=== PATIENT | female | born 1970 | race Caucasian/White ===

== ENCOUNTER 2017-01-02 05:55 | Emergency (ER) | payer BC ==
[2017-01-02] MEDS ORDERED: NS 0.9% 1000 ML* 1,000 ML IV ONE (07:10)
[2017-01-02] MEDS ORDERED: Ondansetron INJ* 2 MG/ML VIAL IV ONE (07:11)
[2017-01-02] MEDS ORDERED: Morphine INJ* 4 MG/ML 1 ML SYRINGE IV ONE (07:11)
[2017-01-02] MEDS ORDERED: Ketorolac INJ* 30 MG/ML 1 ML VIAL IV PUSH ONE (07:11)
--- NOTE | 2017-01-02 07:26 | ED ---
Brayden Torres Alfonso, scribed for Khushbu Arias MD on 01/02/17 at 0715 . Abdominal Pain/Female - HPI Summary HPI Summary: This patient is a 46 year old F [place] [facility] [place] by with a chief complaint of constant left flank pain for two days. Pain started in left back. Now also pain in LLQ. The CC is described as a pressure. The patient rates the pain 8/10 in severity. Symptoms aggravated by some movement and alleviated by position and Vicodin. 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 Patient reports nausea, and chills. Patient denies diarrhea, urinary frequency, vaginal discharge, and leg pain. PMHx of left breast cancer (April 2013) with sentinel node, kidney stone in 2009 similar, chronic low back pain, 3 back surgeries, and fibroid cyst surgery. Pt with infrequent menses - on Tamoxifen. Patients medication reviewed this visit. 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 Associated Signs and Symptoms: Positive: Nausea, Other: - Positive chills; negative diarrhea, urinary frequency, vaginal discharge, and leg pain Allergies/Adverse Reactions: Allergies Allergy/AdvReac Type Severity Reaction Status Date / Time Sulfa Antibiotics Allergy Mild Vomiting Verified 01/02/17 06:13 BANDAIDS Allergy Rash Uncoded 01/02/17 06:13 ENVIRONMENTAL/SEASONAL Allergy RUNNY Uncoded 01/02/17 06:13 HAYFEVER NOSE, ITCHY WATERY EYES, ITCHY EARS Home Medications: Home Medications Diclofenac PRN 01/02/17 [History] PMH/Surg Hx/FS Hx/Imm Hx Previously Healthy: Yes Endocrine/Hematology History: Denies: Hx Anticoagulant Therapy, Hx Diabetes, Hx Systemic Lupus Erythematosus Cardiovascular History: Denies: Hx Congestive Heart Failure, Hx Hypertension, Hx Pacemaker/ICD, Other Cardiovascular Problems/Disorders Respiratory History: Denies: Other Respiratory Problems/Disorders History: Reports: Hx Kidney Stones - 2009, PASSED Denies: Hx Renal Disease Musculoskeletal History: Denies: Hx Rheumatoid Arthritis, Hx Osteoporosis Sensory History: Reports: Hx Contacts or Glasses - READING GLASSES Denies: Hx Hearing Aid Opthamlomology History: Reports: Hx Contacts or Glasses - READING GLASSES Neurological History: Reports: Hx Migraine - AROUND MENSTRAL CYCLE Psychiatric History: Denies: Hx Panic Disorder - Cancer History Cancer Type, Location and Year: BREAST LEFT Hx Chemotherapy: Yes Hx Radiation Therapy: No - Surgical History Surgery Procedure, Year, and Place: BACK SURGERIES X3, 1985, 2002, 2004, [place] , [place]. 2 JAW SURGERIES FROM TMJ, 1991, 1992, [place]. LAPAROSCOPY ENDOMETRIOSIS, FIBROID CYSTS, 2000, [facility] -SAME PROCEDURE 06/2015. LEFT SIDE LUMPECTOMY - APR 2013. LYMPH NODE MAY 2013. WISDOM TEETH, 1986 Hx Anesthesia Reactions: Yes - N/V, PARTIAL LUNG COLLAPSE, Infectious Disease History: No Infectious Disease History: Denies: Traveled Outside the [place] in Last 30 Days - Family History Known Family History: Positive: Other - Kidney stones. - Social History Lives: With Family Alcohol Use: Rare Substance Use Type: Reports: None Substance Use Comment - Amount & Last Used: VICODIN Smoking Status (MU): Former Smoker Have You Smoked in the Last Year: No Review of Systems Positive: Chills Eyes: Negative ENT: Negative Cardiovascular: Negative Positive: Abdominal Pain - Left flank, Nausea. Negative: Diarrhea Genitourinary: Negative Positive: other - Neg vaginal discharge.. Negative: frequency Musculoskeletal: Negative Positive: Other - chronic leg paresthesia - no change Skin: Negative Neurological: Negative Psychological: Normal All Other Systems Reviewed And Are Negative: Yes Physical Exam Triage Information Reviewed: Yes Vital Signs On Initial Exam: Initial Vitals Temp Pulse Resp BP Pulse Ox 97.8 F 100 12 127/51 100 01/02/17 06:07 01/02/17 06:07 01/02/17 06:07 01/02/17 06:07 01/02/17 06:07 Vital Signs Reviewed: Yes Appearance: Positive: Well-Appearing, No Pain Distress, Well-Nourished Skin: Positive: Warm, Skin Color Reflects Adequate Perfusion, Dry Eyes: Positive: Normal, EOMI, ARVIN ENT: Positive: Normal ENT inspection, Hearing grossly normal, Pharynx normal Neck: Positive: Supple, Nontender Respiratory/Lung Sounds: Positive: Clear to Auscultation, Breath Sounds Present Cardiovascular: Positive: Normal, RRR. Negative: Murmur Abdomen Description: Positive: Nontender, No Organomegaly, Soft Bowel Sounds: Positive: Present Musculoskeletal: Positive: Other - No pain spinous process c/t/l/s + TTP left paraspinal discomfort with direct palpation. Pain increases with sitting up, movement Neurological: Positive: Normal, Sensory/Motor Intact, Alert, Oriented to Person Place, Time Psychiatric: Positive: Normal AVPU Assessment: Alert - [place] Coma Scale Best Eye Response: 4 - Spontaneous Best Motor Response: 6 - Obeys Commands Best Verbal Response: 5 - Oriented Diagnostics - Vital Signs Vital Signs Temp Pulse Resp BP Pulse Ox 01/02/17 06:07 97.8 F 100 12 127/51 100 - Laboratory Result Diagrams: 01/02/17 07:30 01/02/17 07:30 Lab Statement: Any lab studies that have been ordered have been reviewed, and results considered in the medical decision making process. - CT A/P CT Interpretation Completed By: Radiologist - Imaging radiation control worker : 6 mm stone appearing in proximal left ureter since 05/20/10 and causing minimal hydronephrosis. 5.3 cm cyst appearing in left ovary/ Trace physiologic free fluid right posterior cul-de-sac. Unremarkable pancreas and gallbladder. No bowel obstruction, colitis, or free air. Appendix not seen with certainty. No pericecal inflammation to suggest acute appendicitis. Steatosis liver. Surgical changes lumbosacral spine. Dr. Bray : 1. Moderate LEFT hydronephrosis is traced to a 7 mm stone at the proximal LEFT ureter. 2. Sharply circumscribed 5.3 cm maximum dimension near water density LEFT ovarian cyst likely a follicular or hemorrhagic cyst. Follow-up pelvic ultrasound suggested for further assessment. Results discussed with Dr. Arias 01/02/2017 8:29 AM EDT - Additional Comments Diagnostic Additional Comments: Transvaginal US reveals, per radiologist, FIBROID UTERUS. 5 CENTIMETERS LEFT OVARIAN CYST. SUGGEST FOLLOW-UP IN 3 MONTHS. NONVISUALIZATION RIGHT OVARY. Re-Evaluation - Re-Evaluation First Eval Re-Evaluation Time: 08:10 Change: Improved Comment: Patient now states she is pain free. CT A/P results reviewed. She agrees to do an US for further eval of ovarian cyst. Pt requesting po Second Eval Re-Evaluation Time: 08:48 Comment: Pt at ultrasound. Reviewed CT interprestation Dr. Bray with Third Eval Re-Evaluation Time: 10:15 Change: Improved Comment: Patient continues to be pain free. She has seen Dr. Deleon (urologist) before and will schedule a follow up at their office. Sarmad give Rx percocet, flomax Abdominal Pain Fem Course/Dx - Course Course Of Treatment: Pt presents wiht left sided back pain since Sunday now with radiation to left LQ. Pain worse with movement and direct palpation. Differential includes renal colic, ovarian cyst, musculoskeletal pain, UTI/ pyelo. ivf. analgesia. labs. urine. CT. reassess - Diagnoses Provider Diagnoses: Renal colic on left side, Ovarian cyst - Provider Notifications Discussed Care Of Patient With: Cristian Bray Time Discussed With Above Provider: 08:29 Instructed by Provider To: Other - Consulted Dr. Bray (radiologist) to review of CT - renal stone has migrated from kidney - was in kidney in 2014. Consulted [address]. Deleon (urologist) at 1029 who requested a KUB. Discharge - Discharge Plan Condition: Stable Disposition: HOME Prescriptions: Tamsulosin CAP* [Flomax CAP*] 0.4 mg PO BEDTIME #7 cap oxyCODONE/Acetamin 5/325 MG* [Percocet 5/325 TAB*] 1 - 2 tab PO Q6H PRN #20 tab MDD 8 PRN Reason: Pain Patient Education Materials: Renal Colic (ED), Ovarian Cyst (ED) Referrals: Amber Faulkner NP [Primary Care Provider] - 3 Days Parker Deleon MD [Medical Doctor] - 1 Day (tomorrow, 01/03/17, at 2pm ) Additional Instructions: - stay well hydrated. Drink plenty of non-alcoholic, non-caffinated beverages - Okay to alternate ibuprofen (advil, motrin) 600mg and tylenol product (Vicodin , Percocet) every 3 hours for pain. Take with food. Do NOT drive, operate machinery or drink alcohol while taking these medications - Take flomax at bedtime as instructed - Dr. Deleon would like to see you in follow-up. As we discussed, you will likely require intervention given the size of your stone. You have an appointment scheduled for tomorrow, 01/03/17, at 2pm -If you develop fever, chills, nausea, or uncontrolled pain, contact Dr. Deleon or return to the emergency department The documentation as recorded by the Brayden collins Alfonso accurately reflects the service I personally performed and the decisions made by me, Khushbu Arias MD.
[2017-01-02 07:46] LABS: Hematocrit 36 % (35-47); Hemoglobin 12.1 g/dl (12.0-16.0); Mean Corpuscular HGB Conc 33 g/dl (31-36); Mean Corpuscular Hemoglobin 28 pg (27-31); Mean Corpuscular Volume 85 fL (80-97); Mean Platelet Volume 9 um3 (7.4-10.4); Red Blood Count 4.31 10^6/ul (4.0-5.4); Red Cell Distribution Width 13 % (10.5-15); White Blood Count 12.4 10^3/ul (3.5-10.8)
[2017-01-02 07:53] LABS: Urine Bacteria 1+ (Absent); Urine Bilirubin Negative (Negative); Urine Glucose Negative (Negative); Urine Nitrite Negative (Negative)
[2017-01-02 07:57] LABS: Albumin 4.4 g/dL (3.2-5.2); BUN/Creatinine Ratio 8.1 (8-20); C Reactive Protein 33.17 mg/L (< 5.00); Calcium 9.6 mg/dL (8.6-10.3); EGFR African American 54.1 (>60); Globulin 3.2 g/dL (2-4); Potassium 3.6 mmol/L (3.5-5.0); Total Bilirubin 0.7 mg/dL (0.2-1.0); Total Protein 7.6 g/dL (6.4-8.9)
--- NOTE | 2017-01-02 08:38 | RAD ---
INDICATION: LEFT flank pain. Nausea. History of kidney stones. History of breast carcinoma and endometriosis. COMPARISON: September 29, 2016 bone scan and May 26, 2014 PET scan. TECHNIQUE: Multidetector CT images were obtained from the lung bases to the ischial tuberosities. Evaluation of the viscera is limited without IV contrast. Multiplanar reformation. REPORT: Unremarkable visualized inferior thorax. Unremarkable unenhanced liver, gallbladder, pancreas, spleen. Negative for CT abnormality of the upper GI, small bowel, medially extending appendix, or colon. Negative for ascites, free air, hernias. Normal adrenal glands. Moderate LEFT hydronephrosis is traced to a 7 mm stone at the proximal LEFT ureter. Mild periureteral and perinephric inflammatory stranding. No additional urolithiasis evident. No conspicuous focal renal lesions. Unremarkable partially distended urinary bladder. Unremarkable uterus and RIGHT adnexal region. Sharply circumscribed 5.3 cm maximum dimension near water density LEFT ovarian cyst likely a follicular or hemorrhagic cyst. Negative for lymphadenopathy. Mild calcific plaque of normal diameter abdominal aorta. Physiologic distention of the IVC. Postsurgical change of L5-S1 decompressive laminectomy and fusion. Negative for suspicious focal osseous lesions. IMPRESSION: 1. Moderate LEFT hydronephrosis is traced to a 7 mm stone at the proximal LEFT ureter. 2. Sharply circumscribed 5.3 cm maximum dimension near water density LEFT ovarian cyst likely a follicular or hemorrhagic cyst. Follow-up pelvic ultrasound suggested for further assessment. Results discussed with Dr. Arias 01/02/2017 8:29 AM EDT
--- NOTE | 2017-01-02 10:13 | RAD ---
INDICATION: Fibroid uterus. Ovarian cyst COMPARISON: CT January 02, 2017 TECHNIQUE: Longitudinal and transverse transvaginal and Limited transabdominal scans of the pelvis were obtained. FINDINGS: Uterus: The uterus appears mildly bulky. There are multiple fibroids. In the right fundus is a 2.4 x 2.4 x 2.5 cm fibroid. These measurements are slightly increased. In the right body is a second fibroid measuring 2.4 x 2.4 x 2.6 cm, increased in size. A third fibroid is also present in the right body and measures 2.2 x 2.0 x 2.0 cm, unchanged. A fourth fibroid is in the left fundus and measures 2.5 x 2.2 x 2.2 cm. These measurements are slightly larger.. The uterus measures 9.0 x 4.4 x 6.5 cm. Endometrial thickness: The endometrial thickness is measured at 1.0 cm. . Free fluid: There is no significant free fluid . Ovaries: The right ovary is not identified as a discrete structure. The left ovary measures 4.9 x 4.1 x 4.9 cm. There is a left ovarian cyst measuring 4.2 x 3.9 x 5.0 cm. There is flow on Doppler interrogation. Other: None IMPRESSION: FIBROID UTERUS. 5 CENTIMETERS LEFT OVARIAN CYST. SUGGEST FOLLOW-UP IN 3 MONTHS. NONVISUALIZATION RIGHT OVARY.
--- NOTE | 2017-01-02 11:14 | RAD ---
INDICATION: Proximal left ureteral calculus COMPARISON: CT December 31, 2016 TECHNIQUE: A single view of the abdomen is submitted. FINDINGS: Bones: There are no acute bony findings. Soft tissues: The soft tissues appear normal. The psoas margins are sharp. Bowel gas pattern: Normal Calcifications: The known proximal left ureteral calculus is not identified with certainty likely secondary to overlying bowel. Other: None IMPRESSION: THE LEFT RENAL CALCULUS IS NOT DEFINITIVELY IDENTIFIED ON THE PLAIN RADIOGRAPH
[2017-01-02 11:55] VITALS: BP 118/85
--- NOTE | 2017-01-04 08:41 | ED ---
Brayden Torres Alfonso, scribed for Khushbu Arias MD on 01/02/17 at 1133 . Progress - Progress Note Progress Note: An abdomen X-Ray KUB reveals, per radiologist, THE LEFT RENAL CALCULUS IS NOT DEFINITIVELY IDENTIFIED ON THE PLAIN RADIOGRAPH. Re-Evaluation - Re-Evaluation First Eval Re-Evaluation Time: 08:10 Change: Improved Comment: Patient now states she is pain free. CT A/P results reviewed. She agrees to do an US for further eval of ovarian cyst. Pt requesting po Second Eval Re-Evaluation Time: 08:48 Comment: Pt at ultrasound. Reviewed CT interprestation Dr. Bray with Third Eval Re-Evaluation Time: 10:15 Change: Improved Comment: Patient continues to be pain free. She has seen Dr. Deleon (urologist) before and will schedule a follow up at their office. Sarmad give Rx percocet, flomax Course/Dx - Course Course Of Treatment: Pt presents wiht left sided back pain since Sunday now with radiation to left LQ. Pain worse with movement and direct palpation. Differential includes renal colic, ovarian cyst, musculoskeletal pain, UTI/ pyelo. ivf. analgesia. labs. urine. CT. reassess - Diagnoses Provider Diagnoses: Renal colic on left side, Ovarian cyst - Provider Notifications Time Discussed With Above Provider: 08:29 Instructed by Provider To: Other - Consulted Dr. Bray (radiologist) to review of CT - renal stone has migrated from kidney - was in kidney in 2014. Consult[address] Deleon (urologist) at 1029 who requested a KUB. The documentation as recorded by the Brayden collins Alfonso accurately reflects the service I personally performed and the decisions made by me, Khushbu Arias MD.
== END 2017-01-02 11:55 | disposition home or self-care (01) ==
LOC: ED 05:55
DX: N23 Unspecified renal colic (principal); D25.9 Leiomyoma of uterus, unspecified; N83.202 Unspecified ovarian cyst, left side
CPT/HCPCS: 36415; 74000; 74176; 76830; 80053; 81003; 81015; 83605; 83690; 85025; 86140; 87086; 96374; 96375; 99283; J1885; J2270; J2405

== ENCOUNTER 2017-01-03 14:45 | Day surgery (SDC) | payer BC ==
[2017-01-03] MEDS ORDERED: Ondansetron INJ* 2 MG/ML VIAL IV PRN ×2 (15:01→16:37)
[2017-01-03] MEDS ORDERED: HYDROmorphone* 1 MG/ML 1 ML SYR IV PRN ×2 (15:01→16:37)
[2017-01-03] MEDS ORDERED: Buffered Lidocaine 0.9% SYRIN* 5 ML/SYR SYRINGE ONE (15:03)
[2017-01-03] MEDS ORDERED: Ondansetron INJ* 2 MG/ML VIAL ONE (15:03)
[2017-01-03] MEDS ORDERED: cefTRIAXone(*) 2 GM ADDV.VIAL IVPB ONE (15:03)
[2017-01-03] MEDS ORDERED: Buffered Lidocaine 0.9% SYRIN* 5 ML/SYR SYRINGE INTRADERM ONE (15:29)
--- NOTE | 2017-01-03 15:45 | HP ---
CC: Amber Faulkner NP * DATE OF ADMISSION: 01/03/2017. AGE: 46-year-old female. ADMITTING DIAGNOSES: 1. Left flank pain. 2. Calculus left proximal ureter. 3. Left hydronephrosis. PLANNED PROCEDURE: Left stent insertion, possible ureteroscopy (to be followed in the near future by lithotripsy). SURGEON: Dr. Parker Deleon. HISTORY OF PRESENT ILLNESS: Guerita Minor is a 46-year-old lady with a history of renal calculi. I had originally evaluated her in 2010 and since then she has not had any episodes of flank pain until recently. She started having left flank pain last week which subsequently got more severe, requiring a trip to the emergency room. This revealed a 7 mm calculus in the proximal left ureter with left hydronephrosis and hydroureter. She is being brought in for urgent left stent insertion because of increasing severity of pain and will probably require lithotripsy in the near future because of the proximal location of the calculus. PAST MEDICAL HISTORY: Significant for: 1. Renal calculi. 2. Left breast cancer diagnosed in 2012. PAST SURGICAL HISTORY: 1. Significant for left breast lumpectomy, followed by sentinel lymph note dissection. 2. Multiple back surgeries (three total). 3. Surgery for endometriosis. MEDICATIONS ON ADMISSION: Vicodin and Percocet on a prn basis, Flomax 0.4 mg once a day, Tamoxifen daily. ALLERGIES: SULFA. FAMILY HISTORY: Her mother has a history of kidney stones. SMOKING HISTORY: Nonsmoker. REVIEW OF SYSTEMS: She is otherwise in excellent health. She denies any chest pain or shortness of breath. There is no history of diabetes mellitus or any other major systemic illness. PHYSICAL EXAMINATION GENERAL: Middle-aged lady who appears to be in fairly severe discomfort. VITAL SIGNS: Blood pressure 138/86, pulse 92 per minute, temperature 96.2, oxygen saturation 96 percent on room air. CARDIOVASCULAR: Regular rate and rhythm, S1, S2. LUNGS: Clear bilaterally. ABDOMEN: Soft with left flank tenderness. IMPRESSION: Qiqrg-vpjvs-yigz-old lady with an obstructing calculus in the left proximal ureter causing severe pain in spite of oral pain medication. PLAN: Left stent insertion, possible ureteroscopy (to be followed in the near future by lithotripsy). [id number]/[facility] #: [id number] [place]
[2017-01-03] MEDS ORDERED: HYDROmorphone* 1 MG/ML 1 ML SYR ONE (16:18)
[2017-01-03] MEDS ORDERED: Iohexol 180 (CONTRAST) 10 ML SDV IV ONE (16:31)
[2017-01-03] MEDS ORDERED: fentaNYL* 50 MCG/ML 2 ML VIAL (100 MCG VIAL) IV PRN (16:37)
[2017-01-03] MEDS ORDERED: HYDROcodone/ACETAMIN 5-325 MG* 1 TAB PO PRN (16:37)
[2017-01-03] MEDS ORDERED: diPHENhydraMINE IV* 50 MG/ML 1 ml VIAL (BENADRYL) IV PRN (16:37)
[2017-01-03] MEDS ORDERED: DiMENhydriNATE IV* 50 MG/ML VIAL IV PUSH PRN (16:37)
[2017-01-03] MEDS ORDERED: fentaNYL* 50 MCG/ML 2 ML VIAL (100 MCG VIAL) ONE (16:41)
[2017-01-03] MEDS ORDERED: Midazolam* 1 MG/ML 2 ML VIAL (2 MG) ONE (16:41)
[2017-01-03] MEDS ORDERED: Lidocaine 2% PF * 5 ML VIAL ONE (17:26)
[2017-01-03] MEDS ORDERED: Propofol* 10 MG/ML 20 ML BTL IV PUSH ONE (17:26)
[2017-01-03] MEDS ORDERED: Famotidine IV* 10 MG/ML 2 ML (20 mg) ONE (17:26)
[2017-01-03] MEDS ORDERED: Dexamethasone IV* 4 MG/ML 1 ML (4 MG) ONE (17:26)
[2017-01-03] MEDS ORDERED: oxyCODONE/Acetamin 5/325 MG* TAB ONE (18:19)
--- NOTE | 2017-01-03 18:39 | RAD ---
INDICATION: Retrograde pyelogram stent placement COMPARISONS: CT dated January 02, 2017 TECHNIQUE: Fluoroscopy was provided for a retrograde pyelogram and stent placement. Total fluoroscopy time is: 17 seconds FINDINGS: Spot images demonstrate contrast and a stent within the renal collecting system. IMPRESSION: FLUOROSCOPY WAS PROVIDED FOR A RETROGRADE PYELOGRAM AND STENT PLACEMENT CPT II Codes: 6045F
[2017-01-03 18:43] VITALS: BP 111/58
[2017-01-03] MEDS ORDERED: CMCS:Solifenacin(NF) 5 MG TAB PO ONE (19:00)
--- NOTE | 2017-01-03 20:51 | RAD ---
HISTORY: Postop COMPARISONS: Pyelogram dated January 03, 2017 VIEWS: Frontal views of the abdomen. FINDINGS: BOWEL: There is a nonspecific bowel gas pattern, with nondilated small bowel gas noted. CALCULI: A left ureteral stent is noted. There is a 0.5 cm calculus overlying the proximal portion of the stent, likely within the proximal ureter versus left renal pelvis. BONES AND SOFT TISSUES: There is post surgical change to the spine. OTHER FINDINGS: The lung bases are clear. There are radiopaque foreign bodies noted overlying the right hemiabdomen. IMPRESSION: LEFT NEPHROLITHIASIS WITH A LEFT URETERAL STENT
--- NOTE | 2017-01-04 10:10 | OP ---
CC: Amber Faulkner NP; Dr. Parker Deleon OPERATIVE REPORT: DATE OF OPERATION: 01/03/17 DATE OF : [birth year] AGE: 46 years, female. SURGEON: Parker Deleon MD. ANESTHESIOLOGIST: Dr. Patel. ANESTHESIA: General. PRE-OP DIAGNOSES: 1 . Left hydronephrosis. 2. Calculus, proximal left ureter. POST-OP DIAGNOSES: 1 . Left hydronephrosis. 2. Calculus, proximal left ureter. OPERATIVE PROCEDURE: Cystoscopy, left retrograde pyelogram, left ureteral calculus manipulation, an d left stent insertion. COMPLICATIONS: None. POSTOPERATIVE CONDITION: Stable. STENT USED: 6-[place] stent, left ureter. INDICATIONS: Guerita Minor is a 46-year-old lady who was evaluated for severe left flank pain se condary to an obstructing calculus in the left proximal ureter. She is being brought in for urgent l eft stent insertion, to be followed in the near future by lithotripsy. DESCRIPTION OF PROCEDURE: After induction of general anesthesia, patient was placed in dorsal litho stacy position. Sequential compression devices were in place and functioning. Initial cystoscopy re vealed a normally located right and left ureteral orifices. The bladder was examined and appeared u nremarkable. A guidewire was introduced into the left ureter. Retrograde pyelogram revealed left h ydronephrosis. An open-ended catheter was advanced to the level of the proximal ureter, about 5 cm from the ureteropelvic junction. The calculus was noted and was carefully manipulated proximally. A 6-[place] stent was introduced and positioned under fluoroscopy, with good proximal and distal posi tioning obtained. The initial stent deployment showed good positioning. However, the open-ended ca theter, which was used as a pusher, was tunnelled into the distal end of the stent. This required m e to remove the stent and reposition it again over a guidewire and, once again, good proximal and di stal positioning was obtained. The contrast drained nicely out of the kidney. The bladder was empt ied. The patient tolerated the procedure satisfactorily and was transferred back to recovery area i n stable condition. [id number]/[facility] #: [id number]
== END 2017-01-03 18:52 | disposition home or self-care (01) ==
LOC: OR 14:45
PROVIDERS: ATTEND Urology
DX: N13.2 Hydronephrosis with renal and ureteral calculous obstruction (principal); Z87.891 Personal history of nicotine dependence; Z85.3 Personal history of malignant neoplasm of breast
CPT/HCPCS: 74000; 74420; 81025; A9270-GY; C1876; J0696; J1100; J1170; J1580; J2250; J2405; J2704; J3010

== ENCOUNTER 2017-01-22 09:14 | Day surgery (SDC) | payer BC ==
[~2017-01-22 09:14] MED LIST: Buffered Lidocaine 0.9% SYRIN* 5 ML/SYR SYRINGE INTRADERM ONE
[2017-01-22] MEDS ORDERED: Buffered Lidocaine 0.9% SYRIN* 5 ML/SYR SYRINGE ONE (09:16)
[2017-01-22] MEDS ORDERED: cefTRIAXone(*) 2 GM ADDV.VIAL IVPB ONE (09:16)
--- NOTE | 2017-01-22 10:04 | RAD ---
HISTORY: Shock wave lithotripsy COMPARISONS: January 03, 2017 VIEWS: Frontal views of the abdomen. FINDINGS: BOWEL: There is a nonspecific bowel gas pattern, with nondilated small bowel gas noted. CALCULI: A left ureteral stent is noted. There is a 0.5 cm calculus along the proximal left ureter. BONES AND SOFT TISSUES: There is post surgical change to the spine OTHER FINDINGS: The lung bases are clear. There is no subphrenic gas. IMPRESSION: LEFT NEPHROLITHIASIS WITH A LEFT URETERAL STENT
[2017-01-22] MEDS ORDERED: fentaNYL* 50 MCG/ML 2 ML VIAL (100 MCG VIAL) ONE (10:26)
[2017-01-22] MEDS ORDERED: Midazolam* 1 MG/ML 2 ML VIAL (2 MG) ONE (10:26)
[2017-01-22] MEDS ORDERED: HYDROmorphone* 1 MG/ML 1 ML CARPUJECT IV PRN (11:34)
[2017-01-22] MEDS ORDERED: fentaNYL* 50 MCG/ML 2 ML VIAL (100 MCG VIAL) IV PRN (11:34)
[2017-01-22] MEDS ORDERED: Acetaminophen TAB* 325 MG PO PRN (11:34)
[2017-01-22] MEDS ORDERED: Ondansetron INJ* 2 MG/ML VIAL IV PRN (11:34)
[2017-01-22] MEDS ORDERED: DiMENhydriNATE IV* 50 MG/ML VIAL IV PUSH PRN (11:34)
[2017-01-22] MEDS ORDERED: PROCHLORPERAZINE INJ 5 MG/ML 2 ML VIAL IV PRN (11:34)
[2017-01-22] MEDS ORDERED: Dexamethasone IV* 4 MG/ML 1 ML (4 MG) ONE (11:53)
[2017-01-22] MEDS ORDERED: Propofol* 10 MG/ML 20 ML BTL IV PUSH ONE (11:53)
[2017-01-22] MEDS ORDERED: Famotidine IV* 10 MG/ML 2 ML (20 mg) ONE (11:53)
[2017-01-22] MEDS ORDERED: Lidocaine 2% PF * 5 ML VIAL ONE (11:53)
[2017-01-22 13:20] VITALS: BP 118/71
--- NOTE | 2017-01-22 22:50 | OP ---
CC: Amber Faulkner NP * DATE OF OPERATION: 01/22/17 - SDS DATE OF : [birth year] - AGE: 46 years, female. SURGEON: Dr. Deleon. ANESTHESIOLOGIST: Dr. Patel. ANESTHESIA: General. PRE-OP DIAGNOSES: Calculus, left proximal ureter. POST-OP DIAGNOSES: Calculus, left proximal ureter. OPERATIVE PROCEDURE: Shockwave lithotripsy of left ureteral calculus. INDICATIONS: Guerita Minor is a 46-year-old lady who had undergone urgent left stent insertion, she is now being brought in for lithotripsy. COMPLICATIONS: None. POSTOPERATIVE CONDITION: Stable. DESCRIPTION OF PROCEDURE: After induction of general anesthesia, the patient was placed on the lithotripsy table in supine position. The calculus which had been pushed back into the renal pelvis had migrated inferiorly and was located in the proximal left ureter alongside the stent. Under fluoroscopy monitoring, shockwave lithotripsy was carried out at a rate 90 shocks per minute. Periodic imagining revealed good localization and fragmentation and a total of 24,000 shocks were administered. The patient tolerated the procedure satisfactorily and was transferred back to recovery area in stable condition. [id number]/[facility] #: [id number] MTDD
== END 2017-01-22 13:19 | disposition home or self-care (01) ==
LOC: OR 09:14
PROVIDERS: ATTEND Urology
DX: N20.1 Calculus of ureter (principal); Z96.0 Presence of urogenital implants; Z85.3 Personal history of malignant neoplasm of breast; Z88.2 Allergy status to sulfonamides
CPT/HCPCS: 74000; 81025; J0696; J1100; J2250; J2704; J3010